=== PATIENT | male | born 1995 | race Caucasian/White ===

== ENCOUNTER 2018-08-03 15:47 | Emergency (ER) | payer OTHER ==
[~2018-08-03] VITALS: Ht 182.9 cm; Wt 127.0 kg
--- NOTE | 2018-08-03 22:19 | EKG ---
[facility] [address] [place], [place] [address] Signed Sinus tachycardia Otherwise normal ECG No previous ECGs available Confirmed by NELSON COLBERT DO ([id number]) on 08/03/2018 10:19:10 PM Electronically Signed By: NELSON COLBERT DO 08/03/18 2219 PATIENT NAME: ENEDELIA MCLAIN Electrocardiogram DATE OF : [birth year] PHYSICIAN: NELSON COLBERT DO REPORT #: [id number] REPORT IS CONFIDENTIAL AND NOT TO BE RELEASED WITHOUT AUTHORIZATION
== END 2018-08-03 19:48 | disposition home or self-care (01) ==
LOC: ED 15:47
DX: S06.0X1A Concussion with loss of consciousness of 30 minutes or less, initial encounter (principal); R07.89 Other chest pain; Z88.0 Allergy status to penicillin; V86.59XA Driver of other special all-terrain or other off-road motor vehicle injured in nontraffic accident, initial encounter
CPT/HCPCS: 70450; 71046; 80053; 85025; 93005; 93010; 99285-25